=== PATIENT | female | born 1950 | race Caucasian/White ===

== ENCOUNTER 2016-07-14 10:46 | Emergency (ER) | payer OTHER ==
[~2016-07-14] VITALS: Ht 167.6 cm; Wt 54.4 kg
[2016-07-14 10:54] VITALS: BP 126/81
== END 2016-07-14 12:09 | disposition home or self-care (01) ==
LOC: ER 10:49
DX: S92.351A Displaced fracture of fifth metatarsal bone, right foot, initial encounter for closed fracture (principal); Z88.5 Allergy status to narcotic agent; X58.XXXA Exposure to other specified factors, initial encounter; Y93.89 Activity, other specified; Y92.89 Other specified places as the place of occurrence of the external cause; Y99.0 Civilian activity done for income or pay
CPT/HCPCS: 29515; 73630; 99284; A4606; Z7610

== ENCOUNTER 2021-01-02 15:57 | Emergency (ER) | payer MEDICAID, OTHER ==
[~2021-01-02] VITALS: Ht 170.2 cm; Wt 63.5 kg
--- NOTE | 2021-01-02 16:10 | NUR ---
c/o left foot pain, s/p trippped and fall yesterday 10/10 pain scale. Patient a/ox4, breathing even and unlabored, no sob noted, ambulatory with steady gait.
[2021-01-02 17:22] VITALS: BP 134/81
--- NOTE | 2021-01-02 17:23 | NUR ---
APPLIED ANSHU WRAP TO LEFT FOOT, Patient discharged to home in stable condition. Written and verbal after care instructions given. Patient verbalizes understanding of instruction.
== END 2021-01-02 17:23 | disposition home or self-care (01) ==
LOC: ER 15:57
DX: S93.692A Other sprain of left foot, initial encounter (principal); Z88.5 Allergy status to narcotic agent; W01.0XXA Fall on same level from slipping, tripping and stumbling without subsequent striking against object, initial encounter; Y93.89 Activity, other specified; Y92.89 Other specified places as the place of occurrence of the external cause; Y99.8 Other external cause status
CPT/HCPCS: 73630-TC